=== PATIENT | female | born 1980 | race Caucasian/White ===

== ENCOUNTER 2020-02-29 16:43 | Outpatient (REF) | payer BC, SELFPAY ==
--- NOTE | 2020-02-29 16:50 | XR_ITS ---
EXAMINATION: LEFT HIP AND LUMBAR SPINE CLINICAL INFORMATION: Left hip pain COMPARISON: None TECHNIQUE: AP pelvis, 2 view left hip, and three-view lumbar spine studies. FINDINGS: There are 5 nonrib-bearing lumbar vertebra the bony texture and alignment is satisfactory. No evidence of acute fracture, spondylolisthesis, or spondylolysis is seen. Pedicles intact. AP pelvis does not demonstrate any evidence of acute fracture or diastases. Sacroiliac joints unremarkable. Hip joint spaces maintained. There is a subchondral cysts seen about the right femoral neck. 2 views of the left hip do not demonstrate any evidence of acute fracture or dislocation. Hip joint space is maintained. No significant degenerative spurring is identified. No abnormal lytic or sclerotic lesions are seen involving the femoral head and there is no evidence of femoral head collapse. XR/XR lumbar spine 2-3V IMPRESSION: No significant bony abnormality of the lumbar spine, AP pelvis, or left hip.
--- NOTE | 2020-02-29 16:50 | XR_ITS ---
EXAMINATION: LEFT HIP AND LUMBAR SPINE CLINICAL INFORMATION: Left hip pain COMPARISON: None TECHNIQUE: AP pelvis, 2 view left hip, and three-view lumbar spine studies. FINDINGS: There are 5 nonrib-bearing lumbar vertebra the bony texture and alignment is satisfactory. No evidence of acute fracture, spondylolisthesis, or spondylolysis is seen. Pedicles intact. AP pelvis does not demonstrate any evidence of acute fracture or diastases. Sacroiliac joints unremarkable. Hip joint spaces maintained. There is a subchondral cysts seen about the right femoral neck. 2 views of the left hip do not demonstrate any evidence of acute fracture or dislocation. Hip joint space is maintained. No significant degenerative spurring is identified. No abnormal lytic or sclerotic lesions are seen involving the femoral head and there is no evidence of femoral head collapse. XR/XR hip LT min 2V IMPRESSION: No significant bony abnormality of the lumbar spine, AP pelvis, or left hip.
== END 2020-02-29 16:44 | disposition home or self-care (01) ==
LOC: HO.XRAY 16:43
PROVIDERS: PCP Internal Medicine; Visit Provider Internal Medicine
DX: M25.559 Pain in unspecified hip (principal); M54.9 Dorsalgia, unspecified
CPT/HCPCS: 72100; 73502

== ENCOUNTER → 2020-08-14 09:25 | Outpatient (BNVA) | payer BC, SELFPAY | PROVIDERS: PCP Internal Medicine; Visit Provider Psychiatry & Neurology Neurology ==

== ENCOUNTER → 2020-09-25 20:34 | Outpatient (REF) | payer BC, SELFPAY | LOC: HO.SL 20:34 | PROVIDERS: PCP Internal Medicine; Visit Provider Psychiatry & Neurology Neurology | DX: G47.00 Insomnia, unspecified (principal); G47.10 Hypersomnia, unspecified | CPT/HCPCS: 95810 ==

== ENCOUNTER → 2020-10-09 10:34 | Outpatient (BNVA) | payer BC, SELFPAY | PROVIDERS: PCP Internal Medicine; Visit Provider Psychiatry & Neurology Neurology ==

== ENCOUNTER → 2021-02-26 10:11 | Outpatient (BNVA) | payer BC, SELFPAY | PROVIDERS: PCP Internal Medicine; Visit Provider Psychiatry & Neurology Neurology ==

== ENCOUNTER → 2021-05-16 15:25 | Outpatient (BNVA) | payer BC, SELFPAY | PROVIDERS: PCP Internal Medicine; Visit Provider Psychiatry & Neurology Neurology ==

== ENCOUNTER → 2021-07-18 13:34 | Outpatient (BNVA) | payer BC, SELFPAY | PROVIDERS: PCP Internal Medicine; Visit Provider Psychiatry & Neurology Neurology | DX: Z13.89 Encounter for screening for other disorder (principal) ==

== ENCOUNTER → 2022-05-20 14:18 | Outpatient (BNVA) | payer BC, SELFPAY | PROVIDERS: PCP Internal Medicine; Visit Provider Psychiatry & Neurology Neurology | DX: G47.11 Idiopathic hypersomnia with long sleep time (principal); G47.33 Obstructive sleep apnea (adult) (pediatric); G47.00 Insomnia, unspecified ==

== ENCOUNTER → 2022-07-15 16:02 | Outpatient (BNVA) | payer BC, SELFPAY | PROVIDERS: PCP Internal Medicine; Visit Provider Psychiatry & Neurology Neurology | DX: G47.11 Idiopathic hypersomnia with long sleep time (principal); G47.33 Obstructive sleep apnea (adult) (pediatric); G47.00 Insomnia, unspecified; G43.909 Migraine, unspecified, not intractable, without status migrainosus; G44.81 Hypnic headache ==

== ENCOUNTER → 2022-09-29 07:32 | Outpatient (BNVA) | payer BC, SELFPAY | PROVIDERS: PCP Internal Medicine; Visit Provider Psychiatry & Neurology Neurology | DX: G47.11 Idiopathic hypersomnia with long sleep time (principal); G47.33 Obstructive sleep apnea (adult) (pediatric); G47.00 Insomnia, unspecified; G43.909 Migraine, unspecified, not intractable, without status migrainosus; G44.81 Hypnic headache ==

== ENCOUNTER 2022-11-04 11:14 | Outpatient (AMB) | payer BC, SELFPAY ==
--- NOTE | 2022-11-04 11:15 | A.OFFVIS_ITS ---
Intake VS Expanded 11/04/22 11:23 Height 5 ft 3 in Weight 208 lb 3.2 oz BMI 36.9 BP 136/64 Blood Pressure Location Rt brachial Blood Pressure Position Sitting Pulse 86 Pulse Source Pulse Oximeter Temp 95.7 F L Temperature Source Temporal Artery Scan Pulse Oximetry 98 Oxygen Delivery Method Room Air Body Fat 92.6 Body Fat Percentage 44.5 Free Fat Mass 115.6 Muscle Mass 109.6 Visceral Mass 11.0 Water Mass 82.4 BMR 1,627 Intake Visit Reasons: (OV) Gastric Balloon Consult Loader Technician: Loader Technician offered & declined Allergies hydrocodone Allergy (Mild, Verified 11/04/22 11:29) Agitated amitriptyline [From Elavil] Allergy (Unknown, Verified 11/04/22 11:22) unknown pseudoephedrine [Sudafed] Allergy (Unknown, Verified 11/04/22 11:22) unknown Medication List - Last Reconciled 11/04/22 by Yoshi Raines MD armodafinil 250 mg PO QAM 30 days cariprazine (Vraylar) 3 mg PO DAILY duloxetine 60 mg PO DAILY fremanezumab-vfrm (Ajovy Syringe) 675 mg (4.5 mL) subcut [id number] levothyroxine 75 mcg PO DAILY magnesium oxide 400 mg PO DAILY melatonin 5 mg qhs; metoprolol succinate ER 50 mg PO DAILY sumatriptan succinate 100 mg PO DIRECTED topiramate 50 mg PO BEDTIME HPI HPI Comments History of Present Illness Details The pt is a 42 yo woman with a h/o obesity, ASHUTOSH prescribed CPAP, HTN & tachycardia,pre-diabetes, hyperlipidemia, PCOS, hypersomnia, depression, anxiety & migraines who reports her heaviest weight as 213 lbs, last week; she presents today at 208lbs/BMI 36.7. She states she was last seen by her PCP a couple months ago & has given permission to communicate with her PCP. The patient notes that she was overweight as a child but also reports that her heaviest weight started a few years ago with the change of medication for her depression. 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 She notes that she parallels her mother's general health and that there was a history of obesity, coronary artery disease. During a recent [place], she saw the computer screen saver here at [facility] that advertised the gastric balloon, so she scheduled an appointment to obtain more information. Previous weight loss attempts include paleo diet, portion control and powdered meals. These include intermittent fasting an Atkins diet. She reports minimal weight loss occurred and weight regain occurred as well. Past surgical history includes laparoscopic cholecystectomy and craniotomy for excision of an arachnoid cyst GERD 9 ESS 4 BRENDA 2 QOL 56 SF-36 questionnaire is complete in reviewed [facility] Medical History Hypnic headache Surgical History History of cholecystectomy History of craniotomy Family History Father Chronic mental illness Anxiety Depression Mother Chronic mental illness Asthma Hypertension Diabetes Bipolar 1 disorder CVD (cardiovascular disease) Myocardial infarction Brother Hypertension Son In good health Social History Household Members: Spouse and Children Alcohol intake: current Alcohol intake frequency: holidays/special occasions only Patient Tobacco Use Status: Never used Tobacco Current occupational status: employed 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 Physical Exam Vital Signs: Last Vital Signs Temp 95.7 F L 11/04/22 11:23 Pulse 86 11/04/22 11:23 BP 136/64 11/04/22 11:23 Pulse Ox 98 11/04/22 11:23 Oxygen Delivery Method Room Air 11/04/22 11:23 BMI result Body Mass Index 36.9 The patient is non-toxic & in good spirits NC/AT, PERRLA, EOMI Mood, affect & judgment all appear appropriate Sclera anicteric conjunctiva pink and moist Oropharynx is clear with no aphthous ulcers, Mallampati class 4, mucous membranes moist Neck is supple with no masses, adenopathy or bruits Thyroid is nontender and free of dominant masses Heart is regular, normal S1-S2 no rubs or murmurs Lungs are clear and equal anteriorly with no audible wheezing, rubs or dullness to percussion Abdomen is obese with no demonstrable hernias. No HSM, rebound, rigidity, guarding, masses or bruits are present. Rectal exam is deferred Skin has good turgor and is free of rashes Extremities free of cyanosis clubbing edema Results Reviewed Results Reviewed: The patient declined any diagnostic imaging or lab work today. Assessment & Plan Assessment & Plan (1) Class 2 obesity due to excess calories with body mass index (BMI) of 36.0 to 36.9 in adult: Code(s): E66.09 - Other obesity due to excess calories; Z68.36 - Body mass index [BMI] 36.0-36.9, adult (2) Obstructive sleep apnea: Code(s): G47.33 - Obstructive sleep apnea (adult) (pediatric) (3) PCOS (polycystic ovarian syndrome): Code(s): E28.2 - Polycystic ovarian syndrome (4) Hyperlipidemia: Code(s): E78.5 - Hyperlipidemia, unspecified (5) Hypertension: Code(s): I10 - Essential (primary) hypertension (6) ADHD: Code(s): F90.9 - Attention-deficit hyperactivity disorder, unspecified type (7) GERD (gastroesophageal reflux disease): Code(s): K21.9 - Gastro-esophageal reflux disease without esophagitis (8) Constipation: Code(s): K59.00 - Constipation, unspecified Plan Using a teaching pulmonary specialist, I reviewed options of Orbera gastric balloon, sleeve gastrectomy, gastric bypass and medical management. The importance of healthy diet and increased activity to augment weight loss as a durable change was disc ussed and apparently understood. Post-procedural activity restrictions, medications, balloon cost and recommendations were discussed with the patient. The inherent risks to the procedure and risk of weight regain were discussed at length and apparently understood. Patient notes some significant GERD, especially with eating late at night. She notes that this is worsened as she his gained weight over the past couple years. She further endorses irritable bowel syndrome with constipation features. The patient requested time to think about how she wants to proceed. She notes that she would like to hold off on any testing at this point since diagnostic testing was recently done by her PCP. She would like to discuss her options with her and will reach out with any questions. Coding Level of Care Code New Pt Level 5 (39927) Diagnoses Class 2 obesity due to excess calories with body mass index (BMI) of 36.0 to 36.9 in adult E66.09; Z68.36 Obstructive sleep apnea G47.33 PCOS (polycystic ovarian syndrome) E28.2 Hyperlipidemia E78.5 Hypertension I10 ADHD F90.9 GERD (gastroesophageal reflux disease) K21.9 Constipation K59.00 Time Spent (min) 63
[2022-11-04 11:23] VITALS: BP 136/64; PULSE 86; TEMP 35.4; O2SAT 98; BMI 36.9
== END 2022-11-04 14:37 | disposition home or self-care (01) ==
PROVIDERS: PCP Internal Medicine; Visit Provider Surgery
DX: E66.09 Other obesity due to excess calories (principal); Z68.36 Body mass index [BMI] 36.0-36.9, adult; G47.33 Obstructive sleep apnea (adult) (pediatric); E28.2 Polycystic ovarian syndrome; E78.5 Hyperlipidemia, unspecified; I10 Essential (primary) hypertension; F90.9 Attention-deficit hyperactivity disorder, unspecified type; K21.9 Gastro-esophageal reflux disease without esophagitis; K59.00 Constipation, unspecified
CPT/HCPCS: 99205

== ENCOUNTER → 2022-11-04 11:14 | Outpatient (BNVA) | payer BC, SELFPAY | PROVIDERS: PCP Internal Medicine; Visit Provider Surgery ==

== ENCOUNTER 2023-04-01 07:32 | Outpatient (AMB) | payer BC, SELFPAY ==
--- NOTE | 2023-04-01 07:34 | A.OFFVIS_ITS ---
Intake Vital Signs 04/01/23 07:35 Height 5 ft 3 in Weight 208 lb 6 oz BMI 36.9 BP 114/74 Blood Pressure Location Rt brachial Position Sitting Pulse 93 Pulse Source Pulse Oximeter Pulse Oximetry (%) 99 Oxygen Delivery Method Room Air Intake Visit Reasons: 3m f/u - Confirmed Intake Note: Patient 3 month follow up. Allergies hydrocodone Allergy (Mild, Verified 04/01/23 07:37) Agitated amitriptyline [From Elavil] Allergy (Unknown, Verified 04/01/23 07:37) unknown pseudoephedrine [Sudafed] Allergy (Unknown, Verified 04/01/23 07:37) unknown Medication List - Last Reconciled 04/01/23 by Erna Acevedo MD armodafinil 250 mg PO QAM 30 days cariprazine (Vraylar) 3 mg PO DAILY cyclobenzaprine 10 mg PO BEDTIME duloxetine 60 mg PO DAILY fremanezumab-vfrm (Ajovy Syringe) 675 mg (4.5 mL) subcut [id number] gabapentin 300 mg PO DAILY levothyroxine 75 mcg PO DAILY lisinopril 5 mg PO DAILY magnesium oxide 400 mg PO DAILY melatonin 5 mg qhs; metoprolol succinate ER 50 mg PO DAILY sumatriptan succinate 100 mg PO DIRECTED topiramate 50 mg PO BEDTIME HPI HPI Comments History of Present Illness Details 43y/o female comes for follow up.Sinc e starting ajovy her headaches have significantly improved from 20 migraine days per month to less than 1-2 migraines per month. The headaches are less intense and responds to tylenol or imitrex. Her hypnic headaches have resolved since she started PT 1 week ago. she is on nuvigil 250mg , she is also on cymbalta. she was on wakix but since change in her insurance it is not covered she tried on ritalin, adderall,concerta, vyvance,effexor in the past . No cataplexy Driving is good. she sleeps Ok Mood is stable Does not take nap now. she went to weight management once. She is using her CPAP regularly . 90 % compliance [id number] Compliance report- 90% usage hrs-7 AHI-5 PFSH Medical History Hypnic headache Surgical History History of craniotomy History of cholecystectomy Family History Father Chronic mental illness Anxiety Depression Mother Chronic mental illness Asthma Hypertension Diabetes Bipolar 1 disorder CVD (cardiovascular disease) Myocardial infarction Brother Hypertension Son In good health Social History Household Members: Spouse and Children Alcohol intake: current Alcohol intake frequency: holidays/special occasions only Patient Tobacco Use Status: Never used Tobacco Current occupational status: employed 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 Physical Exam Vital Signs: Last Vital Signs Pulse 93 04/01/23 07:35 BP 114/74 04/01/23 07:35 Pulse Ox 99 04/01/23 07:35 Oxygen Delivery Method Room Air 04/01/23 07:35 BMI result Body Mass Index 36.9 Alert Awake oriented to time, place and person Mood - stable Speech- normal Cognition- intact Const Orientation/consciousness: patient oriented x3 Neuro General: patient oriented x3, gait normal, tone normal, no focal motor deficits and CN's II-XI intact bilaterally Assessment & Plan Assessment & Plan (1) Obstructive sleep apnea: Code(s): G47.33 - Obstructive sleep apnea (adult) (pediatric) (2) Idiopathic hypersomnia: Code(s): G47.11 - Idiopathic hypersomnia with long sleep time (3) Migraine: Code(s): G43.909 - Migraine, unspecified, not intractable, without status migrainosus (4) Hypnic headache: Code(s): G44.81 - Hypnic headache Plan armodafanil 250mg qam Topiramate to 50 mg qhs melatonin 5mg qhs continue CPAP - compliance stressed continue ajovy 675 mg q 3 mths Coding Level of Care Code Est Pt Level 5 (20962) Diagnoses Obstructive sleep apnea G47.33 Idiopathic hypersomnia G47.11 Migraine G43.909 Hypnic headache G44.81
[2023-04-01 07:35] VITALS: BP 114/74; PULSE 93; O2SAT 99; BMI 36.9
== END 2023-04-01 08:01 | disposition home or self-care (01) ==
PROVIDERS: PCP Internal Medicine; Visit Provider Psychiatry & Neurology Neurology
DX: G47.33 Obstructive sleep apnea (adult) (pediatric) (principal); G47.11 Idiopathic hypersomnia with long sleep time; G43.909 Migraine, unspecified, not intractable, without status migrainosus; G44.81 Hypnic headache
CPT/HCPCS: 99214

== ENCOUNTER → 2023-04-01 07:32 | Outpatient (BNVA) | payer BC, SELFPAY | PROVIDERS: PCP Internal Medicine; Visit Provider Psychiatry & Neurology Neurology | DX: G47.11 Idiopathic hypersomnia with long sleep time (principal); G47.33 Obstructive sleep apnea (adult) (pediatric); G47.00 Insomnia, unspecified; G43.909 Migraine, unspecified, not intractable, without status migrainosus; G44.81 Hypnic headache ==

== ENCOUNTER 2023-09-30 15:19 | Outpatient (AMB) | payer BC, SELFPAY ==
--- NOTE | 2023-09-30 15:23 | MHC.OFFVIS ---
Vital Signs 09/30/23 15:25 Height 5 ft 3 in Weight 207 lb 6 oz BMI 36.7 BP 128/80 Blood Pressure Location Rt brachial Position Sitting Respiration 16 Pulse 85 Pulse Source Pulse Oximeter Pulse Oximetry (%) 98 Oxygen Delivery Method Room Air Intake Visit Reasons: Follow up - LVM w/add Intake Note: Pt presents to the office for a 6 month follow up for hypnic headaches. Telegraph Repeater Installer Required: No Allergies hydrocodone Allergy (Mild, Verified 09/30/23 15:24) Agitated amitriptyline [From Elavil] Allergy (Unknown, Verified 09/30/23 15:24) unknown pseudoephedrine [Sudafed] Allergy (Unknown, Verified 09/30/23 15:24) unknown Medication List - Last Reconciled 09/30/23 by Erna Acevedo MD armodafinil 250 mg PO QAM 30 days cariprazine (Vraylar) 3 mg PO DAILY duloxetine 60 mg PO DAILY gabapentin 300 mg PO DAILY levothyroxine 75 mcg PO DAILY lisinopril 5 mg PO DAILY magnesium oxide 400 mg PO DAILY melatonin 5 mg qhs; metoprolol succinate ER 50 mg PO DAILY sumatriptan succinate 100 mg PO DIRECTED topiramate 50 mg PO BEDTIME HPI Comments Details: 43y/o female comes for follow up. Since starting ajovy her headaches had significantly improved from 20 migraine days per month to less than 1-2 migraines per month. But her insurance declined so she is not on AJovy since 6 mths No recent migraines she describes daily hypnic headaches - starts in her left neck and radiates to front . its is usually between 2-4am - she tries to stretch and lasts 1 hr she tried cyclobenzaprine for 2 weeks , gabapentin and it did not help she is on nuvigil 250mg , she is also on cymbalta. she was on wakix but since change in her insurance it is not covered she tried on ritalin, adderall,concerta, vyvance,effexor in the past . No cataplexy Driving is good. she sleeps Ok Mood is stable Does not take nap now. she went to weight management once. She is using her CPAP regularly . 90 % compliance [id number] Compliance report- 90% usage hrs-7 AHI-5 PFSH Medical History Hypnic headache Surgical History History of craniotomy History of cholecystectomy Family History Father Chronic mental illness Anxiety Depression Mother Chronic mental illness Asthma Hypertension Diabetes Bipolar 1 disorder CVD (cardiovascular disease) Myocardial infarction Brother Hypertension Son In good health Social History Household Members: Spouse and Children Alcohol intake: current Alcohol intake frequency: holidays/special occasions only Patient Tobacco Use Status: Never used Tobacco Current occupational status: employed 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 Physical Exam Vital Signs: Last Vital Signs Pulse 85 09/30/23 15:25 Resp 16 09/30/23 15:25 BP 128/80 09/30/23 15:25 Pulse Ox 98 09/30/23 15:25 Oxygen Delivery Method Room Air 09/30/23 15:25 BMI result Body Mass Index 36.7 Alert Awake oriented to time, place and person Mood - stable Speech- normal Cognition- intact Const Orientation/consciousness: patient oriented x3 Neuro General: patient oriented x3, gait normal, tone normal, no focal motor deficits and CN's II-XI intact bilaterally Assessment & Plan Assessment & Plan (1) Obstructive sleep apnea: Code(s): G47.33 - Obstructive sleep apnea (adult) (pediatric) Category: Medical (2) Idiopathic hypersomnia: Code(s): G47.11 - Idiopathic hypersomnia with long sleep time Category: Medical (3) Migraine: Code(s): G43.909 - Migraine, unspecified, not intractable, without status migrainosus Category: Medical (4) Hypnic headache: Code(s): G44.81 - Hypnic headache Category: Medical Plan armodafanil 250mg qam Topiramate to 50 mg qhs melatonin 10mg qhs continue CPAP - compliance stressed I suggested a cup caffiene at bedtime for hypnic headaches will consider restarting ajovy Orders: Orders Erythrocyte Sedimentation Rate Today G43.909 - Migraine, unspecified, not intractable, without status migrainosus Coding Level of Care Code Est Pt Level 4 (31784) Complex EM visit Add On G2211 Diagnoses Obstructive sleep apnea G47.33 Idiopathic hypersomnia G47.11 Migraine G43.909 Hypnic headache G44.81
[2023-09-30 15:25] VITALS: BP 128/80; PULSE 85; RESP 16; O2SAT 98; BMI 36.7
== END 2023-09-30 15:51 | disposition home or self-care (01) ==
PROVIDERS: PCP Internal Medicine; Visit Provider Psychiatry & Neurology Neurology
DX: G47.33 Obstructive sleep apnea (adult) (pediatric) (principal); G47.11 Idiopathic hypersomnia with long sleep time; G43.909 Migraine, unspecified, not intractable, without status migrainosus; G44.81 Hypnic headache
CPT/HCPCS: 99214

== ENCOUNTER → 2023-09-30 15:19 | Outpatient (BNVA) | payer BC, SELFPAY | PROVIDERS: PCP Internal Medicine; Visit Provider Psychiatry & Neurology Neurology ==

== ENCOUNTER 2023-09-30 15:52 | Outpatient (REF) | payer BC, SELFPAY ==
[2023-09-30 19:35] LABS: Erythrocyte Sedimentation Rate 6 MM/HR (0-20)
== END 2023-09-30 15:53 | disposition home or self-care (01) ==
LOC: HO.HKASLDS 15:52
PROVIDERS: Visit Provider Psychiatry & Neurology Neurology
DX: G43.909 Migraine, unspecified, not intractable, without status migrainosus (principal)
CPT/HCPCS: 36415; 85652

== ENCOUNTER 2023-11-11 08:20 | Outpatient (AMB) | payer BC, SELFPAY ==
--- NOTE | 2023-11-11 08:20 | A.OFFVIS_ITS ---
Intake Visit Reasons: Follow up - Confirmed Intake Note: Pt presents for follow up for Hypnic headaches via telehealth. Jukebox Operator Required: No Allergies hydrocodone Allergy (Mild, Verified 11/11/23 08:47) Agitated amitriptyline [From Elavil] Allergy (Unknown, Verified 11/11/23 08:47) unknown pseudoephedrine [Sudafed] Allergy (Unknown, Verified 11/11/23 08:47) unknown HPI Comments Details: 43y/o female calls for follow up. Her daily hypnic headaches responded to caffiene but she had some GI issues. she was started on meloxicam for back pain by Dr. Cedillo which helped . Lats weekend she has some gastric issues and her headaches resumed. she is waiting for her GI to improve before starting coffee. she tried on ritalin, adderall,concerta, vyvance,effexor in the past . No cataplexy Driving is good. she sleeps Ok Mood is stable Does not take nap now. she went to weight management once. She is using her CPAP regularly . 90 % compliance [id number] Compliance report- 90% usage hrs-7 AHI-5 PFSH Medical History Hypnic headache Surgical History History of craniotomy History of cholecystectomy Family History Father Chronic mental illness Anxiety Depression Mother Chronic mental illness Asthma Hypertension Diabetes Bipolar 1 disorder CVD (cardiovascular disease) Myocardial infarction Brother Hypertension Son In good health Social History Household Members: Spouse and Children Alcohol intake: current Alcohol intake frequency: holidays/special occasions only Patient Tobacco Use Status: Never used Tobacco Current occupational status: employed 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 Physical Exam Alert Awake oriented to time, place and person Mood - stable Speech- normal Cognition- intact Telehealth Telehealth Telehealth Platform: Telephone Location of provider rendering services: practice address Location of patient: address on file Patient Identification confirmed using: Name, : Yes Telehealth method: voice only Patient verbally consented to treatment: Yes Patient verbally consented to billing insurance company: Yes Patient informed of any privacy concerns related to visit: Yes Minutes spent on Phone/Video with Pt.: 13 Assessment & Plan Assessment & Plan (1) Obstructive sleep apnea: Code(s): G47.33 - Obstructive sleep apnea (adult) (pediatric) Category: Medical (2) Idiopathic hypersomnia: Code(s): G47.11 - Idiopathic hypersomnia with long sleep time Category: Medical (3) Migraine: Code(s): G43.909 - Migraine, unspecified, not intractable, without status migrainosus Category: Medical (4) Hypnic headache: Code(s): G44.81 - Hypnic headache Category: Medical Plan armodafanil 250mg qam Topiramate to 50 mg qhs melatonin 10mg qhs continue CPAP - compliance stressed I suggested a cup caffiene at bedtime for hypnic headaches will consider restarting ajkeily Coding Level of Care Code Tele Est Pt Level 3 (18676) Diagnoses Obstructive sleep apnea G47.33 Idiopathic hypersomnia G47.11 Migraine G43.909 Hypnic headache G44.81
== END 2023-11-11 11:53 | disposition home or self-care (01) ==
LOC: HO.HSMS 08:20
PROVIDERS: PCP Internal Medicine; Visit Provider Psychiatry & Neurology Neurology
DX: G47.33 Obstructive sleep apnea (adult) (pediatric) (principal); G47.11 Idiopathic hypersomnia with long sleep time; G43.909 Migraine, unspecified, not intractable, without status migrainosus; G44.81 Hypnic headache
CPT/HCPCS: 99442

== ENCOUNTER → 2023-11-11 08:20 | Outpatient (BNVA) | payer BC, SELFPAY | PROVIDERS: PCP Internal Medicine; Visit Provider Psychiatry & Neurology Neurology | DX: G43.909 Migraine, unspecified, not intractable, without status migrainosus (principal); G47.33 Obstructive sleep apnea (adult) (pediatric); G47.11 Idiopathic hypersomnia with long sleep time; G44.81 Hypnic headache ==

== ENCOUNTER → 2024-05-26 14:56 | Outpatient (BNVA) | payer BC, SELFPAY | PROVIDERS: PCP Internal Medicine; Visit Provider Psychiatry & Neurology Neurology ==

== ENCOUNTER 2024-10-17 08:34 | Outpatient (AMB) | payer BC, SELFPAY ==
--- NOTE | 2024-10-17 08:36 | MHC.OFFVIS ---
Vital Signs 10/17/24 08:41 Height 5 ft 3 in Weight 216 lb BMI 38.3 BP 124/82 Blood Pressure Location Rt brachial Position Sitting Pulse 92 Pulse Source Pulse Oximeter Pulse Oximetry (%) 98 Oxygen Delivery Method Room Air Intake Visit Reasons: Follow up - ER Intake Note: Patient presents for follow up arter being seen in ER for arm & facial numbness Allergies hydrocodone Allergy (Mild, Verified 10/17/24 08:38) Agitated amitriptyline (From Elavil) Allergy (Unknown, Verified 10/17/24 08:38) unknown pseudoephedrine (Sudafed) Allergy (Unknown, Verified 10/17/24 08:38) unknown HPI Comments Details: 44y/o female comes for follow up.she had a recent ER visit - 3 weeks ago . she woke up at 3 am with numbness in left UE and then LE and face. she was at [facility] -MRI brain and neck- seen by neurologist- atypical migraine or cervical stenosis . CPAP - 90 day compliance- 07/2024-10/16/24 93% Usage hrs 5 hrs 51 minutes APAP5-20 AHI 5.4 MRI brain- minimal white matter changes MRI C spine- Progressed C6-7 left paracentral region resulting in moderate canal stenosis and moderate left foramina stenosis. Her hypnic headaches are more around periods . she changed her pillow and her headaches have decreased to 2-3/week instead of 5-6/week. rec dry needling- had her first session this week and is doing well she was started on meloxicam for back pain by Dr. Cedillo which helped . she had SI joint injections this morning. she tried on ritalin, adderall,concerta, vyvance,effexor in the past . No cataplexy Driving is good. she sleeps Ok Mood is stable Does not take nap now. [facility] Medical History (Updated 10/17/24 @ 09:02 by Erna Acevedo MD) Herniated nucleus pulposus, C6-7 left Hypnic headache Surgical History History of craniotomy History of cholecystectomy Family History Father Chronic mental illness Anxiety Depression Mother Chronic mental illness Asthma Hypertension Diabetes Bipolar 1 disorder CVD (cardiovascular disease) Myocardial infarction Brother Hypertension Son In good health Social History Household Members: Spouse and Children Alcohol intake: current Alcohol intake frequency: holidays/special occasions only Patient Tobacco Use Status: Never used Tobacco Current occupational status: employed 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 Physical Exam Vital Signs: Last Vital Signs Pulse 92 10/17/24 08:41 BP 124/82 10/17/24 08:41 Pulse Ox 98 10/17/24 08:41 Oxygen Delivery Method Room Air 10/17/24 08:41 BMI result Body Mass Index 38.3 Alert Awake oriented to time, place and person Mood - stable Speech- normal Cognition- intact Const General: cooperative, healthy appearing and comfortable Nutritional Appearance: obese Orientation/consciousness: patient oriented x3 Eyes Pupils: Equal, round and reactive pupils present Neuro General: patient oriented x3, gait normal, tone normal, no focal motor deficits and CN's II-XI intact bilaterally Cranial nerves: Yes Facial sensation intact/muscles of mastication intact, Yes Equal, round and reactive pupils present, Yes Bilaterally intact EOM present and Yes Normal facial strength present Cognition (Neuro): normal cognition Gait exam (Neuro): Normal gait present Motor exam (neuro): 5/5 motor strength present throughout and Normal motor muscle tone present throughout Deep tendon reflexes (DTR's): Right triceps reflex intensity grade: 1+, Left triceps reflex intensity grade: 1+, Rt Biceps (C5, C6): 1+, Left biceps reflex intensity grade: 1+, Right brachioradialis reflex intensity grade: 1+, Left brachioradialis reflex intensity grade: 1+, Right patellar reflex intensity grade: 1+ and Left patellar reflex intensity grade: 1+ Coordination: [id number] test normal Assessment & Plan Assessment & Plan (1) Herniated nucleus pulposus, C6-7 left: Code(s): M50.223 - Other cervical disc displacement at C6-C7 level Category: Medical (2) Obstructive sleep apnea: Code(s): G47.33 - Obstructive sleep apnea (adult) (pediatric) Category: Medical (3) Idiopathic hypersomnia: Code(s): G47.11 - Idiopathic hypersomnia with long sleep time Category: Medical (4) Migraine: Code(s): G43.909 - Migraine, unspecified, not intractable, without status migrainosus Category: Medical Qualifiers: Migraine type: other Status migrainosus presence: without status migrainosus Intractability: not intractable Qualified Code(s): G43.809 - Other migraine, not intractable, without status migrainosus (5) Hypnic headache: Code(s): G44.81 - Hypnic headache Category: Medical Plan CPAP compliance stressed EMG Left UE PT for neck armodafanil 250mg qam Topiramate to 50 mg qhs melatonin 10mg qhs continue CPAP - compliance stressed Coding Level of Care Code Est Pt Level 4 (48840) Complex EM visit Add On G2211 Diagnoses Herniated nucleus pulposus, C6-7 left M50.223 Obstructive sleep apnea G47.33 Idiopathic hypersomnia G47.11 Other migraine without status migrainosus, not intractable G43.809 Migraine type: other Status migrainosus presence: without status migrainosus Intractability: not intractable Hypnic headache G44.81
[2024-10-17 08:41] VITALS: BP 124/82; PULSE 92; O2SAT 98; BMI 38.3
--- OUTSIDE RECORDS SUMMARY | 2024-10-17 08:46 | XMS_ITS | Clinical Summary ---
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 Role Phone Unavailable Primary Care Provider Unavailabl e Social History Tobacco Use Types Packs/Day Years Used Date Smoking Tobacco: Never Assessed Comments Unknown Sex and Gender Information Value Date Recorded Sex Assigned at Not on file Legal Sex Female 4:37 AM EST Gender Identity Not on file Sexual Orientation Not on file Plan of Treatment Health Maintenance Due Date Last Done Comments Breast Cancer Screening 1980 Hepatitis B Vaccines (1 of 3 - 19+ 3-dose series) 1999 Cervical Cancer Screening: P ap Smear 2001 Depression Screening 03/23/2022 HIV Screening 03/23/2022 Hepatitis C Screening 03/23/2022 Social Influencers of Health Screening 03/23/2022 COVID-19 Vaccine ( - 2023-2 5 season) 2023 Influenza Vaccine (Season Ended) 2024 DTaP,Tdap,and Td Vaccines (2 - Td or Tdap) 11/17/2031 11/16/2021 HIB Vaccines Aged Out No longer eligi ble based on patient's age to complete this topic HPV Vaccines Aged Out No longer eligi ble based on patient's age to complete this topic Hepatitis A Vaccines Aged Out No long er eligible based on patient's age to complete this topic IPV Vaccines Aged Out No longer eligi ble based on patient's age to complete this topic MMR Vaccines Aged Out No longer eligi ble based on patient's age to complete this topic Meningococcal ACWY Vaccine Aged Out N o longer eligible based on patient's age to complete this topic Meningococcal B Vaccine Aged Out No l onger eligible based on patient's age to complete this topic Pneumococcal Vaccine: Pediat rics (0 to 5 Years) and At-Risk Patients (6 to 64 Years) Aged Out No longer eligi ble based on patient's age to complete this topic RSV Immunization Patients Un elaina 20 months Aged Out No longer eligible b ased on patient's age to complete this topic Varicella Vaccines Aged Out No longer eligible based on patient's age to complete this topic
== END 2024-10-17 09:07 | disposition home or self-care (01) ==
LOC: HO.HSMS 08:35
PROVIDERS: PCP Internal Medicine; Visit Provider Psychiatry & Neurology Neurology
DX: M50.223 Other cervical disc displacement at C6-C7 level (principal); G47.33 Obstructive sleep apnea (adult) (pediatric); G47.11 Idiopathic hypersomnia with long sleep time; G43.809 Other migraine, not intractable, without status migrainosus; G44.81 Hypnic headache
CPT/HCPCS: 99214

== ENCOUNTER 2024-11-22 08:01 | Outpatient (REF) | payer BC, SELFPAY ==
--- OUTSIDE RECORDS SUMMARY | 2024-11-22 08:05 | XMS_ITS | Clinical Summary ---
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 Role Phone Unavailable Primary Care Provider [...] Cervical Cancer Screening: P ap Smear 2001 HIV Screening 03/23/2022 Hepatitis C Screening 03/23/2022 Social Influencers of Health Screening 03/23/2022 COVID-19 Vaccine (1 - 2023-2 5 season) 2023 Depression Screening 04/20/2024 Influenza Vaccine (#1) 2024 DTaP,Tdap,and Td Vaccines (2 - Td [...] 5 Years) and At-Risk Patients (6 to 49 Years) Aged Out No longer eligi ble based on patient's age to complete this topic RSV Immunization Patients Un elaina 20 months Aged Out No longer eligible b ased on patient's age to complete this topic Varicella Vaccines Aged Out No longer eligible based on patient's age to complete this topic
--- NOTE | 2024-11-22 08:07 | EMG_ITS ---
Left median and ulnar motor and sensory studies were performed and left radial sensory and median and lateral antecubital brachial sensory studies were performed. Paraspinal and limb muscles were tested with a needle. Impression: 1. Mild left median neuropathy across carpal tunnel 2. Mild ulnar neuropathy across elbow 3. No evidence of radiculopathy MTDD
== END 2024-11-22 08:02 | disposition home or self-care (01) ==
LOC: HO.NEURO 08:01
PROVIDERS: PCP Internal Medicine; Visit Provider Psychiatry & Neurology Neurology
DX: M50.223 Other cervical disc displacement at C6-C7 level (principal); R20.0 Anesthesia of skin; R20.2 Paresthesia of skin
CPT/HCPCS: 95886; 95910

== ENCOUNTER → 2024-11-22 08:07 | Outpatient (BNV) | payer BC, SELFPAY | PROVIDERS: PCP Internal Medicine; Visit Provider Psychiatry & Neurology Neurology | DX: G56.02 Carpal tunnel syndrome, left upper limb (principal) | CPT/HCPCS: 95886; 95909 ==

== ENCOUNTER 2025-02-13 07:31 | Outpatient (AMB) | payer BC, SELFPAY ==
[2025-02-13 07:33] VITALS: BP 118/80; PULSE 87; O2SAT 99; BMI 37.4
--- NOTE | 2025-02-13 07:33 | MHC.OFFVIS ---
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 Accompanied by: Self / Same As Patient Allergies hydrocodone Allergy (Mild, Verified 02/13/25 07:33) Agitated amitriptyline (From Elavil) Allergy (Unknown, Verified 02/13/25 07:33) unknown pseudoephedrine (Sudafed) Allergy (Unknown, Verified 02/13/25 07:33) unknown Medication List - Last Reconciled 02/13/25 by Erna Acevedo MD acetaminophen ER 650 mg PO Q8H armodafinil 250 mg PO QAM 30 days cariprazine (Vraylar) 4.5 mg PO DAILY cyclobenzaprine 10 mg PO BEDTIME dexmethylphenidate (Focalin) 10 mg PO DAILY duloxetine 60 mg PO DAILY fluticasone propionate 50 mcg/actuation 2 sprays intranasal DAILY lactulose 15 mL PO DAILY PRN levothyroxine 75 mcg PO DAILY lidocaine 5% 1 appl topical TID PRN losartan 25 mg PO DAILY melatonin 5 mg qhs; metoprolol succinate ER 50 mg PO DAILY omeprazole 20 mg PO DAILY prucalopride 2 mg PO DAILY sumatriptan succinate 100 mg PO DIRECTED 1 month MDD 100mg topiramate 50 mg PO BEDTIME HPI Comments Details: 44y/o female comes for follow up. Her headaches are better since she started flexeril 10mg qhs /she has 1-2 headaches a month CPAP - 90 day compliance- 10/2024-02/11 91% Usage hrs 5 hrs 51 minutes APAP5-20 AHI 7.3 MRI brain- minimal white matter changes MRI C spine- Progressed C6-7 left paracentral region resulting in moderate canal stenosis and moderate left foramina stenosis. Her hypnic headaches are more around periods . Tylenol helps rec dry needling- had her first session this week and is doing well she was started on meloxicam for back pain by Dr. Cedillo which helped . she had SI joint injections and started on flexeril 10mg qhs she tried on ritalin, adderall,concerta, vyvance,effexor in the past . No cataplexy Driving is good. she sleeps Ok Mood is stable Does not take nap now. [facility] Medical History Numbness and tingling in left arm Herniated nucleus pulposus, C6-7 left Hypnic headache Surgical History History of craniotomy History of cholecystectomy Family History Father Chronic mental illness Anxiety Depression Mother Chronic mental illness Asthma Hypertension Diabetes Bipolar 1 disorder CVD (cardiovascular disease) Myocardial infarction Brother Hypertension Son In good health Social History Household Members: Spouse and Children Alcohol intake: current Alcohol intake frequency: holidays/special occasions only Patient Tobacco Use Status: Never used Tobacco Current occupational status: employed 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 Exam Vital Signs: Last Vital Signs Pulse 87 02/13/25 07:33 BP 118/80 02/13/25 07:33 Pulse Ox 99 02/13/25 07:33 Oxygen Delivery Method Room Air 02/13/25 07:33 BMI result Body Mass Index 37.4 Alert Awake oriented to time, place and person Mood - stable Speech- normal Cognition- intact Const General: cooperative, healthy appearing and comfortable Nutritional Appearance: obese Orientation/consciousness: patient oriented x3 Eyes Pupils: Equal, round and reactive pupils present Neuro General: patient oriented x3, gait normal, tone normal, no focal motor deficits and CN's II-XI intact bilaterally Cranial nerves: Yes Facial sensation intact/muscles of mastication intact, Yes Equal, round and reactive pupils present, Yes Bilaterally intact EOM present and Yes Normal facial strength present Cognition (Neuro): normal cognition Gait exam (Neuro): Normal gait present Motor exam (neuro): 5/5 motor strength present throughout and Normal motor muscle tone present throughout Coordination: [id number] test normal Assessment & Plan Assessment & Plan (1) Herniated nucleus pulposus, C6-7 left: Code(s): M50.223 - Other cervical disc displacement at C6-C7 level Category: Medical (2) Obstructive sleep apnea: Code(s): G47.33 - Obstructive sleep apnea (adult) (pediatric) Category: Medical (3) Idiopathic hypersomnia: Code(s): G47.11 - Idiopathic hypersomnia with long sleep time Category: Medical (4) Migraine: Code(s): G43.909 - Migraine, unspecified, not intractable, without status migrainosus Category: Medical Qualifiers: Migraine type: other Status migrainosus presence: without status migrainosus Intractability: not intractable Qualified Code(s): G43.809 - Other migraine, not intractable, without status migrainosus (5) Hypnic headache: Code(s): G44.81 - Hypnic headache Category: Medical Plan CPAP compliance stressed F/u with PT for neck- continue exercise armodafanil 250mg qam decrease Topiramate to 25 mg qhs melatonin 10mg qhs continue CPAP - compliance stressed Coding Level of Care Code Est Pt Level 4 (14948) Complex EM visit Add On G2211 Diagnoses Herniated nucleus pulposus, C6-7 left M50.223 Obstructive sleep apnea G47.33 Idiopathic hypersomnia G47.11 Other migraine without status migrainosus, not intractable G43.809 Migraine type: other Status migrainosus presence: without status migrainosus Intractability: not intractable Hypnic headache G44.81
--- OUTSIDE RECORDS SUMMARY | 2025-02-13 07:34 | XMS_ITS | Clinical Summary ---
Author Organization [facility] ity Address [address] [place] [address] Care Team Providers Care Director Of Medicare Name Role Phone Unavailable Primary Care Provider [...] Cervical Cancer Screening: P ap Smear 2001 HPV Vaccines (1 - 3-dose SCD M series) 2007 HIV Screening 03/23/2022 Hepatitis C Screening 03/23/2022 Social Influencers of Health Screening 03/23/2022 Depression Screening 04/20/2024 COVID-19 Vaccine ( - 2023-2 5 season) 2024 Influenza Vaccine (#1) 2024 DTaP,Tdap,and Td Vaccines (2 - Td or Tdap) 11/17/2031 11/16/2021 RSV Immunization Adult Patie nts (1 - 1-dose 75+ series) 2055 HIB Vaccines Aged Out No longer eligi [...]
== END 2025-02-13 08:11 | disposition home or self-care (01) ==
LOC: HO.HSMS 07:32
PROVIDERS: PCP Internal Medicine; Visit Provider Psychiatry & Neurology Neurology
DX: M50.223 Other cervical disc displacement at C6-C7 level (principal); G47.33 Obstructive sleep apnea (adult) (pediatric); G47.11 Idiopathic hypersomnia with long sleep time; G43.809 Other migraine, not intractable, without status migrainosus; G44.81 Hypnic headache
CPT/HCPCS: 99214